=== PATIENT | male | born 1995 | race Caucasian/White ===

== ENCOUNTER 2016-09-23 22:30 | Emergency (ER) | payer SELFPAY ==
[~2016-09-23] VITALS: Ht 172.7 cm; Wt 70.0 kg
[2016-09-23 22:32] VITALS: BP 130/79
[2016-09-23] MEDS ORDERED: NAPR220C2 PO (23:17)
[2016-09-23] MEDS ORDERED: LORA10CA PO (23:18)
[2016-09-23] MEDS ORDERED: ACET650S21 PO (23:19)
[2016-09-23] MEDS ORDERED: MECLIZINE CHEWABLE 25 MG TAB ONE (23:21)
[2016-09-23] MEDS ORDERED: MECLIZINE CHEWABLE 25 MG TAB PO ONE (23:30)
[2016-09-23 23:37] LABS: BLOOD UREA NITROGEN 11 mg/dL (7-18)
== END 2016-09-24 00:28 | disposition home or self-care (01) ==
LOC: ED 23:59
DX: R42 Dizziness and giddiness (principal)
CPT/HCPCS: 36415; 70450; 80048; 85025